=== PATIENT | male | born 1970 | race Native Hawaiian/Other Pacific Islander ===

== ENCOUNTER 2021-03-01 10:01 | Outpatient (CLI) | payer OTHER | END 2021-03-01 19:30 | disposition home or self-care (01) | LOC: MRI 10:01 | PROVIDERS: ATTEND Physician Assistant | DX: G20 Parkinson's disease (principal); G96.9 Disorder of central nervous system, unspecified; R63.4 Abnormal weight loss | CPT/HCPCS: 36415; 82565; 84520; A9576 ==

== ENCOUNTER 2021-03-15 17:53 | Emergency (ER) | payer OTHER ==
[~2021-03-15] VITALS: Ht 182.9 cm; Wt 60.3 kg
[2021-03-15 17:55] VITALS: TEMP 97.3
[2021-03-15 18:30] VITALS: BP 110/74
[2021-03-15 18:47] LABS: PLATELET COUNT 249 K/uL (142-355)
[2021-03-15 19:11] LABS: POTASSIUM 3.6 mmol/L (3.6-5.2); SODIUM 140 mmol/L (136-145)
== END 2021-03-15 20:37 | disposition home or self-care (01) ==
LOC: ED 17:53
PROVIDERS: Emergency Medicine Emergency Medical Services
DX: B34.9 Viral infection, unspecified (principal); Z20.822 Contact with and (suspected) exposure to COVID-19
CPT/HCPCS: 36415; 80053; 83690; 84484; 85027; 87635; 93005; 96360; 99284; U0003

== ENCOUNTER 2021-08-22 15:30 | Emergency (ER) | payer OTHER ==
[~2021-08-22] VITALS: Ht 182.9 cm; Wt 73.5 kg
[2021-08-22 15:36] VITALS: BP 121/74; TEMP 99.7
== END 2021-08-22 16:26 | disposition home or self-care (01) ==
LOC: ED 15:30
DX: L03.116 Cellulitis of left lower limb (principal); S80.862A Insect bite (nonvenomous), left lower leg, initial encounter; W57.XXXA Bitten or stung by nonvenomous insect and other nonvenomous arthropods, initial encounter; Y93.89 Activity, other specified; Y92.89 Other specified places as the place of occurrence of the external cause; Y99.8 Other external cause status
CPT/HCPCS: 96372; 99283; J0696; J2930

== ENCOUNTER 2022-12-20 08:38 | Emergency (ER) | payer OTHER ==
[~2022-12-20] VITALS: Ht 182.9 cm; Wt 77.1 kg
[2022-12-20 09:13] LABS: PLATELET COUNT 236 K/uL (142-355)
[2022-12-20 09:20] LABS: POTASSIUM 3.4 mmol/L (3.6-5.2); SODIUM 136 mmol/L (136-145)
[2022-12-20 09:34] LABS: PARTIAL THROMBOPLASTIN TIME 26.3 SECONDS (24.5-33.6)
[2022-12-20 13:06] VITALS: TEMP 90.2
[2022-12-20 13:33] VITALS: BP 120/63
== END 2022-12-20 14:00 | disposition short-term general hospital (02) ==
LOC: ED 08:38
PROVIDERS: Emergency Medicine
PROC: 0T9B70Z Drainage of Bladder with Drainage Device, Via Natural or Artificial Opening (ICD-10-PCS; principal; 2022-12-20)
DX: T42.4X1A Poisoning by benzodiazepines, accidental (unintentional), initial encounter (principal); T42.8X1A Poisoning by antiparkinsonism drugs and other central muscle-tone depressants, accidental (unintentional), initial encounter; R40.4 Transient alteration of awareness; X58.XXXA Exposure to other specified factors, initial encounter; Y92.098 Other place in other non-institutional residence as the place of occurrence of the external cause
CPT/HCPCS: 36415; 51702; 80053; 80143; 80179; 80307; 80320; 81002; 83735; 84484; 85027; 85379; 85610; 85730; 93005; 96361; 96365; 99285; J1265

== ENCOUNTER → 2023-02-19 | Emergency (ER) | payer OTHER ==
[~2023-02-19] VITALS: Ht 182.9 cm; Wt 69.9 kg
[2023-02-19 19:35] VITALS: BP 126/87; TEMP 98.3
[2023-02-19 20:16] LABS: PLATELET COUNT 265 K/uL (142-355)
[2023-02-19 20:42] LABS: POTASSIUM 3.7 mmol/L (3.6-5.2); SODIUM 138 mmol/L (136-145)
== END ==
LOC: ED 19:29
PROVIDERS: Family Medicine
DX: G20 Parkinson's disease (principal); T50.995A Adverse effect of other drugs, medicaments and biological substances, initial encounter; R06.09 Other forms of dyspnea; X58.XXXA Exposure to other specified factors, initial encounter; Y92.89 Other specified places as the place of occurrence of the external cause; Z79.899 Other long term (current) drug therapy
CPT/HCPCS: 36415; 80053; 80307; 81002; 82150; 82550; 83690; 83880; 84484; 85027; 85379; 85610; 85730; 86140; 93005; 99283

== ENCOUNTER 2023-05-20 11:34 | Emergency (ER) | payer OTHER ==
[~2023-05-20] VITALS: Ht 182.9 cm; Wt 74.8 kg
[2023-05-20 12:17] LABS: PLATELET COUNT 235 K/uL (142-355)
[2023-05-20 12:34] LABS: POTASSIUM 3.9 mmol/L (3.6-5.2)
[2023-05-20 13:15] VITALS: BP 124/80; TEMP 98.1
== END 2023-05-20 13:15 | disposition home or self-care (01) ==
LOC: ED 11:34
PROVIDERS: Family Medicine
DX: F41.9 Anxiety disorder, unspecified (principal); G20 Parkinson's disease
CPT/HCPCS: 36415; 80053; 83880; 84484; 85027; 85379; 93005; 99283

== ENCOUNTER 2023-06-03 18:51 | Emergency (ER) | payer OTHER ==
[~2023-06-03] VITALS: Ht 182.9 cm; Wt 66.7 kg
[2023-06-03 20:20] LABS: PLATELET COUNT 280 K/uL (142-355); POTASSIUM 3.8 mmol/L (3.6-5.2)
[2023-06-04 01:14] LABS: PLATELET COUNT 242 K/uL (142-355)
[2023-06-04 03:00] VITALS: TEMP 98.4
[2023-06-04 07:32] VITALS: BP 114/76
== END 2023-06-04 09:30 | disposition other institution (70) ==
LOC: ED 18:51
PROVIDERS: Family Medicine
DX: R45.851 Suicidal ideations (principal); T50.912A Poisoning by multiple unspecified drugs, medicaments and biological substances, intentional self-harm, initial encounter
CPT/HCPCS: 36415; 43754; 51702; 80053; 80143; 80179; 80307; 80320; 81000; 84484; 85027; 87635; 93005; 96361; 96365; 99285; U0003